=== PATIENT | female | born 1985 | race Caucasian/White ===

== ENCOUNTER 2023-02-08 08:54 | Day surgery (SDC) | payer OTHER, SELFPAY ==
[2023-01-06 15:24] VITALS: BMI 48.4
[2023-02-08] VITALS (7 sets, daily range): BP systolic 126–149; BP diastolic 78–98; PULSE 84–106; RESP 11–17; TEMP 35.5–36.7; O2SAT 93–96; BMI 48.4
[2023-02-08] MEDS: LACTATED RINGERS 1,000 ML 21 ML IV ×2 (09:05→12:43)
[2023-02-08] MEDS: SCOPOLAMINE 1 PATCH TOP (09:36)
--- NOTE | 2023-02-08 09:57 | PM.HP.1 ---
History of Present Illness History of Present Illness Date Patient Seen: 02/08/23 Time Patient Seen: 09:57 Chief complaint: Hernia Repair - Umbilical Narrative: 37-year-old woman PMH morbid obesity active tobacco use here for repair of a painful umbilical hernia. Patient was previously seen and evaluated by my surgical partner Dr. Allen and scheduled for this operation but is unavailable to perform it today. Hernias present for several years but in increasingly enlarging and painful especially with straining. No associated bowel dysfunction PFSH Medical History Headache, migraine GERD (gastroesophageal reflux disease) Psoriasis Pneumonia Anxiety Overweight Allergies Asthma Surgical History History of cholecystectomy (~2014) Family History Father Hypertension Diabetes mellitus Heart disease Mother Diabetes mellitus Social History marital status: household members: spouse and children lives independently: Yes occupational status: unemployed Smoking Status: Current every day smoker alcohol intake: current substance use type: other Meds Home Medications and Allergies Home Medications Medication Instructions Recorded Confirmed Type albuterol sulfate inhalation 11/30/22 11/30/22 History fluticasone 500 mcg-salmeterol 50 1 inh inhalation BID 11/30/22 02/08/23 History mcg/dose blistr powdr for inhalation (Advair Diskus) cholecalciferol (vitamin D3) 50 50 mcg PO DAILY 02/02/23 02/02/23 History mcg (2,000 unit) capsule (Vitamin D3) montelukast 10 mg tablet 10 mg PO DAILY 02/02/23 02/08/23 History Allergies Allergy/AdvReac Type Severity Reaction Status Date / Time moxifloxacin Allergy Swollen Verified 02/08/23 09:25 veins Exam Vital Signs (past 8 hours): - 02/08/23 09:31 Temperature 97.2 F L Pulse Rate 106 H Respiratory Rate 17 Blood Pressure 142/98 H Pulse Oximetry 96 Oxygen Delivery Method Room Air Oxygen Delivery Method Room Air Narrative Exam Narrative: GENERAL: Morbidly obese adult woman, resting comfortably, in no acute distress. HEENT: Normocephalic, atraumatic. No scleral icterus CHEST: Rising symmetrically. No audible wheezes CARDIOVASCULAR: Warm and well perfused. Regular rate ABDOMEN: Tender chronically incarcerated umbilical hernia EXTREMITIES: Normal tone and without edema. NEUROLOGIC: Moving all extremities spontaneously. No gross motor deficits. Assessment & Plan Assessment and plan (1) Umbilical hernia, incarcerated: Status: Acute Assessment & Plan narrative: 37-year-old woman PMH morbid obesity and active tobacco use with a chronically incarcerated painful umbilical hernia. Lengthy discussion with the patient today in the preoperative holding area in regards to her hernia. Her active tobacco use and obesity significantly increase risks of morbidity and mortality associated with this operation in particular the risk of wound infection and hernia recurrence. We discussed alternative treatment options. She expresses her understanding of these risks but feels that the risks are worthwhile given the pain she has associated with it. Informed consent was obtained for open repair of umbilical hernia. Open umbilical hernia repair with mesh
--- NOTE | 2023-02-08 09:57 | SUR.PREOP ---
SEe new order for Duradha from [facility]
--- NOTE | 2023-02-08 10:03 | SUR.OPER ---
Supine on padded OR bed, head on pillow, arms secured on padded arm boards at <90 degrees abduction, legs uncrossed, safety belt at thigh, tape over blanket over lower legs.
[2023-02-08] MEDS: ALBUTEROL/IPRATROPIUM 3 ML AMPUL INH (10:05)
[2023-02-08] MEDS: CEFAZOLIN 2 GM/100 ML PREMIX 100 ML IV (10:17)
[2023-02-08] MEDS: ACETAMINOPHEN IV 1,000 MG/100 ML VIAL 400 MG IV (10:30)
[2023-02-08] MEDS: BUPIVACAINE 0.25% (PF) VIAL 30 ML INJ (10:32)
[2023-02-08] MEDS: hydrOXYzine 50 MG/ML INJ 25 MG IM (12:07)
[2023-02-08] MEDS: OXYCODONE IR 5 MG TABLET PO ×2 (12:08→12:44)
--- NOTE | 2023-02-08 12:09 | PM.OP.1 ---
Operative Date/Time/Diagnoses Date of procedure: 02/08/23 Time of procedure: 12:09 Pre-op diagnosis: Umbilical hernia Post-op diagnosis: same Procedure & Clinicians Procedure: Open umbilical hernia repair Modifier code 22 should be applied to this operation as a result of the patient's morbid obesity BMI 49 this operation took significantly longer and was more complex than would be typical Same procedure as scheduled: Yes Indications: 37-year-old woman with a chronically incarcerated umbilical hernia Surgeon: Solitario Gil Anesthesia Type: General Operative Notes Findings: 8 cm fascial defect containing chronically incarcerated omentum. Omentum is viable. Estimated Blood Loss (mL): 10 Procedure in detail: Patient was brought to the operating room placed supine on the table. Bilateral lower extremity compression devices were applied. General anesthesia was induced and they were intubated with an endotracheal tube. They received 3 g of Ancef prior to skin incision. They were prepped and draped in sterile fashion. A time-out was performed. A curvilinear incision was made inferior to the umbilicus. The subcutaneous tissues were divided. The umbilical hernia was identified and the hernia sac was dissected off the umbilical skin and circumferentially off of the fascia defect. The hernia sac was sharply opened and contained viable chronically incarcerated omentum. The omentum could not be spontaneously reduced back into the abdomen and was therefore resected using the LigaSure. Using blunt dissection I carefully carefully freed the hernia sac from beneath the fascia defect in order to accomodate the mesh. The fascia defect was 8 cm in maximal diameter. A Bard Ventralex ST hernia patch 11 x 14 cm was inserted beneath the fascia defect and above the peritoneum in a sublay position such that the anti-adhesive surface faced towards the abdomen. The mesh was anchored in multiple locations using Ethibond suture to the fascia and the fascial defect was closed over the mesh. The umbilical skin was tacked to the subcutaneous tissues and then the remainder of the subcutaneous tissues were reapproximated using 3 0 Vicry,l skin closed with 4 0 Monocryl followed by the application of Dermabond and Steri-Strips. Sponge instrument count at the end of the operation was correct. Patient tolerated procedure well was extubated and transferred to postoperative care unit in stable condition. Complications: none Post-operative Condition: stable Disposition: same day surgery
[2023-02-08] MEDS: ONDANSETRON 4 MG/2 ML INJ IV (12:44)
== END 2023-02-08 13:30 | disposition home or self-care (01) ==
PROVIDERS: PCP Family Medicine; Referring Provider Surgery; Visit Provider Surgery
PROC: (CPT 49594; principal; 2023-02-08 10:15)
DX: K42.0 Umbilical hernia with obstruction, without gangrene (principal); E66.01 Morbid (severe) obesity due to excess calories; Z68.42 Body mass index [BMI] 45.0-49.9, adult
CPT/HCPCS: 49594; 81025; 82962; J0131; J0330; J0690; J1100; J1170; J1885; J2405; J2704; J3010; J3410; J3490